=== PATIENT | female | born 2000 | race Caucasian/White ===

== ENCOUNTER 2023-02-04 15:21 | Inpatient (IN) ==
--- NOTE | 2023-02-04 16:02 | Emergency Department Note ---
Impression & Plan Suicidal ideations, Mood disorder ED Provider Note NAME: LUCY PELAYO AGE: 22 SEX: F : 2000 ARRIVES VIA: Walk-In INFORMANT: Patient ED PROVIDER(S): Jignesh Jeffries DO CHIEF COMPLAINT: Suicidal ideations HPI: Patient is a 22-year-old female who presents ER with a past medical history of depression, anxiety and PTSD. She sees a psychiatrist. She notes that over the past 24 hours she has been having suicidal ideations with a plan to cut her wrist with anything sharp. She feels unsafe at home. Denies any headache or change in vision. No chest pain or shortness of breath. No nausea, vomiting, or diarrhea. No auditory or visual hallucinations. PAST MEDICAL HISTORY:See Below PAST SURGICAL HISTORY:See Below FAMILY HISTORY:See Below SOCIAL HISTORY:See Below HOME MEDICATIONS:See Below ALLERGIES:See Below VITALS:See Below PHYSICAL EXAMINATION: GENERAL: Sitting up in bed, alert, well appearing, well nourished, no distress, non-toxic EYE EXAM: normal conjunctiva. OROPHARYNX: mucous membranes are moist LUNGS: Clear to auscultation. Normal chest wall mechanics HEART: no murmurs, S1 normal and S2 normal ABDOMEN: abdomen soft, non-tender, normo-active bowel sounds, no masses, no rebound or guarding. UPPER EXTREMITIES: upper extremities are grossly normal. LOWER EXTREMITIES: No pitting edema. NEURO EXAM: Normal sensorium, cranial nerves II-XII grossly intact, normal speech, no gross weakness of arms, no gross weakness of legs. PSYCH: Denies any homicidal ideations. Admits to suicidal ideations with a plan to cut her wrist MEDICAL DECISION MAKING: Patient is a 22-year-old female who presents ER for suicidal ideations with plan to kill her self. Labs were obtained and showed no significant leukocytosis or anemia. BMP along with LFTs bilirubin and hCG was negative. UA was contaminated. No urinary symptoms. Will not treat at this time. Tox positive for marijuana. COVID-negative. Alcohol negative. Patient has clear suicidal ideations with a plan. Agreeable to coming on 201. Discussed with our psychiatric school child care attendant who evaluate the patient independently. After conversation with them they did make a referral to [facility] and patient was accepted. Patient will go to [facility] on a 201. ED OBSERVATION: The patient was placed in observation status at3:30PM. Medical stability and psychiatric clearance. During the time in observation, the patient was frequently reassessed and received blood work and close monitoring. On Final reassessment the patient patient was resting comfortably in the ER and she is medically stable and the patient will be transferred at this time. A total observation time of 5 hours and accepted to [facility] at 8:30 PM Triage Nursing notes reviewed. Limited review of prior medical records performed Vital Signs: reviewed and remarkable for no significant abnormalities Differential diagnosis: Mood disorder, infection, hypoglycemia, electrolyte abnormalities, cardiac sources, intracerebral event, toxicologic, trauma, neurologic, as well as other pathologies. ER treatment provided: See below Diagnostics interpreted by me include EKG and cardiac monitoring as listed below: -ECG: none -Laboratory studies:Interpreted by me as stated above in MDM and shown below. Imaging studies: Xrays: As interpreted by me:none CTs show: none Consultation(s): As described in MDM Procedures:none Critical Care: None Past Med/Surg History Medical History Anxiety Surgical History No pertinent past surgical history Social History Smoking Status: Current some day smoker Tobacco Type: Cigarettes Preferred Language: Swedish Feels Safe at Home: Yes Gender Identity: Female Allergies Allergies Allergy/AdvReac Type Severity Reaction Status Date / Time amoxicillin Allergy Mild Rash Verified 10/31/21 02:35 Home Meds Home Medications Medication Instructions Recorded Confirmed fluvoxamine 100 mg 100 mg PO DAILY 10/31/21 02/04/23 capsule,extended release 24 hr fluvoxamine 150 mg 150 mg PO DAILY 10/31/21 02/04/23 capsule,extended release 24 hr Medical Mj 02/04/23 cariprazine 1.5 mg capsule mg 02/04/23 (Vraylar) vortioxetine 10 mg tablet mg 02/04/23 (Trintellix) Results & Data (ED) Vital Signs Vital Signs - 24 hr 02/04/23 15:47 Temperature 36.6 C Temperature Source Temporal Artery Scan Pulse Rate 86 Respiratory Rate 18 Blood Pressure 118/81 Blood Pressure Mean 93 Pulse Oximetry 100 Sepsis Recent Fever Within 48 Hours No Sepsis New/Unexplained Change in Mental Status N/A Sepsis Action Taken by Nursing No Action Required Laboratory Data 02/04/23 16:55 02/04/23 16:55 Lab Results 02/04/23 02/04/23 02/04/23 Range/Units 16:07 16:23 16:23 WBC (4.8-10.8) K/ul RBC (4.20-5.40) M/uL Hgb (12.0-16.0) g/dl Hct (37.0-47.0) % MCV (80.0-100.0) fL MCH (25.0-34.0) pg MCHC (32.0-36.0) g/dL RDW Std Deviation (36.4-46.3) fL RDW [place] (11.5-14.5) % Plt Count (130-400) K/uL MPV (9.4-12.4) fL Immature Gran % (Auto) % Neut % (Auto) % Lymph % (Auto) % [place] % (Auto) % Eos % (Auto) % Baso % (Auto) % Neut # (Auto) (1.40-6.50) K/uL Lymph # (Auto) (1.2-3.4) K/uL [place] # (Auto) (0.11-0.59) K/uL Eos # (Auto) (0-0.50) K/uL Baso # (Auto) (0-0.2) K/uL Immature Gran # (Auto) (0.01-0.20) K/uL Sodium (136-145) mmol/L Potassium (3.5-5.1) mmol/L Chloride (98-107) mmol/L Carbon Dioxide (21-32) mmol/L Anion Gap (3-11) BUN (6-23) mg/dl Creatinine (0.6-1.2) mg/dl Est Cr Clr Drug Dosing ml/min Est GFR ( Amer) ml/min Est GFR (Non-Af Amer) ml/min BUN/Creatinine Ratio (10-20) Glucose (70-99(Fasting)) mg/dl Calcium (8.6-10.3) mg/dl Total Bilirubin (0.2-1.0) mg/dl AST (13-39) U/L ALT (7-52) U/L Alkaline Phosphatase (34-104) U/L Total Protein (6.0-8.3) gm/dl Albumin (3.4-5.0) gm/dl Globulin (2.5-4.0) gm/dl Albumin/Globulin Ratio (0.9-2) TSH (0.300-4.500) uIu/ml HCG, Qual (Negative) Urine Color Yellow Urine Appearance Cloudy A (Clear) Urine pH 7.5 (4.5-7.5) Ur Specific [place] 1.022 (1.000-1.030) Urine Protein Negative (Negative) Urine Glucose (UA) Negative (Negative) Urine Ketones 1+ H (Negative) Urine Blood Negative (Negative) Urine Nitrite Negative (Negative) Urine Bilirubin Negative (Negative) Urine Urobilinogen Negative (Negative) Ur Leukocyte Esterase Trace H (Negative) Urine WBC (Auto) 10-30 H (0-5) /hpf Urine RBC (Auto) 0-4 (0-4) /hpf U Hyaline Cast (Auto) 5-10 H (0-5) /lpf U Epithel Cells (Auto) >30 H (0-5) /lpf Urine Bacteria (Auto) 2+ H (Negative) Salicylates (3.0-30) mg/dl Urine Opiates Screen Neg (Neg) Ur Methadone, Qual Neg (Neg) Acetaminophen (10-30) ug/ml Urine Barbiturates Neg (Neg) Ur Phencyclidine (PCP) Neg (Neg) U Amphetamin/Meth Scrn Neg (Neg) MDMA (Ecstasy) Screen Neg (Neg) U Benzodiazepines Scrn Neg (Neg) Ur Cocaine Metabolite Neg (Neg) U Marijuana (THC) Screen Pos H (Neg) Ethyl Alcohol mg/dL (<10.0) mg/dl SARS-CoV-2, RNA, NAAT NEGATIVE (NEGATIVE) 02/04/23 02/04/23 02/04/23 Range/Units 16:55 16:55 16:55 WBC 8.38 (4.8-10.8) K/ul RBC 4.26 (4.20-5.40) M/uL Hgb 14.4 (12.0-16.0) g/dl Hct 39.9 (37.0-47.0) % MCV 93.7 (80.0-100.0) fL MCH 33.8 (25.0-34.0) pg MCHC 36.1 H (32.0-36.0) g/dL RDW Std Deviation 41.1 (36.4-46.3) fL RDW [place] 11.9 (11.5-14.5) % Plt Count 234 (130-400) K/uL MPV 8.4 L (9.4-12.4) fL Immature Gran % (Auto) 0.2 % Neut % (Auto) 79.3 % Lymph % (Auto) 14.4 % [place] % (Auto) 5.4 % Eos % (Auto) 0.5 % Baso % (Auto) 0.2 % Neut # (Auto) 6.64 H (1.40-6.50) K/uL Lymph # (Auto) 1.21 (1.2-3.4) K/uL [place] # (Auto) 0.45 (0.11-0.59) K/uL Eos # (Auto) 0.04 (0-0.50) K/uL Baso # (Auto) 0.02 (0-0.2) K/uL Immature Gran # (Auto) 0.02 (0.01-0.20) K/uL Sodium 138 (136-145) mmol/L Potassium 3.7 (3.5-5.1) mmol/L Chloride 106 (98-107) mmol/L Carbon Dioxide 27 (21-32) mmol/L Anion Gap 5 (3-11) BUN 14 (6-23) mg/dl Creatinine 0.51 L (0.6-1.2) mg/dl Est Cr Clr Drug Dosing 121.1 ml/min Est GFR ( Amer) > 150.0 ml/min Est GFR (Non-Af Amer) 134.6 ml/min BUN/Creatinine Ratio 27.5 H (10-20) Glucose 104 H (70-99(Fasting)) mg/dl Calcium 9.3 (8.6-10.3) mg/dl Total Bilirubin 0.5 (0.2-1.0) mg/dl AST 13 (13-39) U/L ALT 8 (7-52) U/L Alkaline Phosphatase 43 (34-104) U/L Total Protein 7.3 (6.0-8.3) gm/dl Albumin 4.5 (3.4-5.0) gm/dl Globulin 2.8 (2.5-4.0) gm/dl Albumin/Globulin Ratio 1.6 (0.9-2) TSH 0.731 (0.300-4.500) uIu/ml HCG, Qual (Negative) Urine Color Urine Appearance (Clear) Urine pH (4.5-7.5) Ur Specific [place] (1.000-1.030) Urine Protein (Negative) Urine Glucose (UA) (Negative) Urine Ketones (Negative) Urine Blood (Negative) Urine Nitrite (Negative) Urine Bilirubin (Negative) Urine Urobilinogen (Negative) Ur Leukocyte Esterase (Negative) Urine WBC (Auto) (0-5) /hpf Urine RBC (Auto) (0-4) /hpf U Hyaline Cast (Auto) (0-5) /lpf U Epithel Cells (Auto) (0-5) /lpf Urine Bacteria (Auto) (Negative) Salicylates (3.0-30) mg/dl Urine Opiates Screen (Neg) Ur Methadone, Qual (Neg) Acetaminophen (10-30) ug/ml Urine Barbiturates (Neg) Ur Phencyclidine (PCP) (Neg) U Amphetamin/Meth Scrn (Neg) MDMA (Ecstasy) Screen (Neg) U Benzodiazepines Scrn (Neg) Ur Cocaine Metabolite (Neg) U Marijuana (THC) Screen (Neg) Ethyl Alcohol mg/dL (<10.0) mg/dl SARS-CoV-2, RNA, NAAT (NEGATIVE) 02/04/23 02/04/23 02/04/23 Range/Units 16:55 16:55 16:55 WBC (4.8-10.8) K/ul RBC (4.20-5.40) M/uL Hgb (12.0-16.0) g/dl Hct (37.0-47.0) % MCV (80.0-100.0) fL MCH (25.0-34.0) pg MCHC (32.0-36.0) g/dL RDW Std Deviation (36.4-46.3) fL RDW [place] (11.5-14.5) % Plt Count (130-400) K/uL MPV (9.4-12.4) fL Immature Gran % (Auto) % Neut % (Auto) % Lymph % (Auto) % [place] % (Auto) % Eos % (Auto) % Baso % (Auto) % Neut # (Auto) (1.40-6.50) K/uL Lymph # (Auto) (1.2-3.4) K/uL [place] # (Auto) (0.11-0.59) K/uL Eos # (Auto) (0-0.50) K/uL Baso # (Auto) (0-0.2) K/uL Immature Gran # (Auto) (0.01-0.20) K/uL Sodium (136-145) mmol/L Potassium (3.5-5.1) mmol/L Chloride (98-107) mmol/L Carbon Dioxide (21-32) mmol/L Anion Gap (3-11) BUN (6-23) mg/dl Creatinine (0.6-1.2) mg/dl Est Cr Clr Drug Dosing ml/min Est GFR ( Amer) ml/min Est GFR (Non-Af Amer) ml/min BUN/Creatinine Ratio (10-20) Glucose (70-99(Fasting)) mg/dl Calcium (8.6-10.3) mg/dl Total Bilirubin (0.2-1.0) mg/dl AST (13-39) U/L ALT (7-52) U/L Alkaline Phosphatase (34-104) U/L Total Protein (6.0-8.3) gm/dl Albumin (3.4-5.0) gm/dl Globulin (2.5-4.0) gm/dl Albumin/Globulin Ratio (0.9-2) TSH (0.300-4.500) uIu/ml HCG, Qual Negative (Negative) Urine Color Urine Appearance (Clear) Urine pH (4.5-7.5) Ur Specific [place] (1.000-1.030) Urine Protein (Negative) Urine Glucose (UA) (Negative) Urine Ketones (Negative) Urine Blood (Negative) Urine Nitrite (Negative) Urine Bilirubin (Negative) Urine Urobilinogen (Negative) Ur Leukocyte Esterase (Negative) Urine WBC (Auto) (0-5) /hpf Urine RBC (Auto) (0-4) /hpf U Hyaline Cast (Auto) (0-5) /lpf U Epithel Cells (Auto) (0-5) /lpf Urine Bacteria (Auto) (Negative) Salicylates < 3.0 L (3.0-30) mg/dl Urine Opiates Screen (Neg) Ur Methadone, Qual (Neg) Acetaminophen < 3 L (10-30) ug/ml Urine Barbiturates (Neg) Ur Phencyclidine (PCP) (Neg) U Amphetamin/Meth Scrn (Neg) MDMA (Ecstasy) Screen (Neg) U Benzodiazepines Scrn (Neg) Ur Cocaine Metabolite (Neg) U Marijuana (THC) Screen (Neg) Ethyl Alcohol mg/dL < 10.0 (<10.0) mg/dl SARS-CoV-2, RNA, NAAT (NEGATIVE) Discharge Plan Visit Data Chief Complaint: Mental Health Evaluation Stated Complaint: MHE, REF BY DOC ED Provider: Jignesh Jeffries Discharge Problem: Suicidal ideations, Mood disorder Forms Stand Alone Forms: My [facility], Suicide Prevention Resources Prescriptions Prescriptions: No Action fluvoxamine 100 mg capsule,extended release 24hr 100 mg PO DAILY Rx Instructions: TOTAL DOSE 250 MG--TAKES WITH 150 MG CAP. fluvoxamine 150 mg capsule,extended release 24hr 150 mg PO DAILY Rx Instructions: TOTAL DOSE 250 MG--TAKES WITH 100 MG CAP. Vraylar 1.5 mg capsule Trintellix 10 mg tablet Medical Mj Referrals Referrals: Viktor Mendoza MD [Primary Care Provider] -
[2023-02-04 16:46] LABS: Appearance Urine Cloudy (Clear); Bacteria Urine Automated 2+ (Negative); Bilirubin Urine Negative (Negative); Blood Urine Negative (Negative); Color Urine Yellow; Epithelial Cell Urine Auto >30 /lpf (0-5); Glucose Urine UA Negative (Negative); Ketones Urine 1+ (Negative); Leukocyte Esterase Urine Trace (Negative); Nitrite Urine Negative (Negative); Protein Urine Negative (Negative); Specific Gravity Urine 1.022 (1.000-1.030); Urobilinogen Urine Negative (Negative); pH Urine 7.5 (4.5-7.5)
[2023-02-04 17:04] LABS: RBC Urine Automated 0-4 /hpf (0-4)
[2023-02-04 17:23] LABS: Basophils # (auto) 0.02 K/uL (0-0.2); Basophils % (auto) 0.2 %; Eosinophils # (auto) 0.04 K/uL (0-0.50); Eosinophils % (auto) 0.5 %; Hematocrit (blood only) 39.9 % (37.0-47.0); Hemoglobin 14.4 g/dl (12.0-16.0); Immature Granulocytes # (auto) 0.02 K/uL (0.01-0.20); Immature Granulocytes % (auto) 0.2 %; Lymphocytes # (auto) 1.21 K/uL (1.2-3.4); Lymphocytes % (auto) 14.4 %; Mean Corpuscular Hemoglobin 33.8 pg (25.0-34.0); Mean Corpuscular Hgb Conc 36.1 g/dL (32.0-36.0); Mean Corpuscular Volume 93.7 fL (80.0-100.0); Mean Platelet Volume 8.4 fL (9.4-12.4); Monocytes # (auto) 0.45 K/uL (0.11-0.59); Monocytes % (auto) 5.4 %; Neutrophils # (auto) 6.64 K/uL (1.40-6.50); Neutrophils % (auto) 79.3 %; Platelet Count 234 K/uL (130-400); RDW Coefficient of Variation 11.9 % (11.5-14.5); RDW Standard Deviation 41.1 fL (36.4-46.3); Red Blood Count 4.26 M/uL (4.20-5.40); White Blood Count 8.38 K/ul (4.8-10.8)
[2023-02-04 17:24] LABS: Amphetamines+Metham, Urine Neg (Neg); Barbiturates, Urine Neg (Neg); Benzodiazepine, Urine Neg (Neg); Cocaine, Urine Neg (Neg); MDMA (Ecstacy), Urine Neg (Neg); Methadone, Urine Neg (Neg); Opiate, Urine Neg (Neg); Phencyclidine, Urine Neg (Neg)
[2023-02-04 17:30] LABS: Acetaminophen < 3 ug/ml (10-30); Salicylate < 3.0 mg/dl (3.0-30)
[2023-02-04 17:34] LABS: Alanine Aminotransferase 8 U/L (7-52); Albumin Globulin Ratio 1.6 (0.9-2); Albumin Level 4.5 gm/dl (3.4-5.0); Alkaline Phosphatase 43 U/L (34-104); Anion Gap 5 (3-11); Aspartate Aminotransferase 13 U/L (13-39); BUN Creatinine Ratio 27.5 (10-20); Bilirubin,Total 0.5 mg/dl (0.2-1.0); Blood Urea Nitrogen 14 mg/dl (6-23); Calcium 9.3 mg/dl (8.6-10.3); Carbon Dioxide 27 mmol/L (21-32); Chloride 106 mmol/L (98-107); Creatinine Clr Calc Pharmacy 121.1 ml/min; Est GFR (African American) > 150.0 ml/min; Est GFR (Non-African American) 134.6 ml/min; Globulin 2.8 gm/dl (2.5-4.0); Glucose 104 mg/dl (70-99(Fasting)); Potassium 3.7 mmol/L (3.5-5.1); Sodium 138 mmol/L (136-145); Total Protein 7.3 gm/dl (6.0-8.3)
[2023-02-04 17:38] LABS: Pregnancy Test, Serum Negative (Negative)
[2023-02-04] MEDS ORDERED: hydrOXYzine HCl 25 MG TAB PO PRN ×2 (20:16)
[2023-02-04] MEDS ORDERED: BISMUTH SUBSALICYLATE LIQD 236 ML PO PRN (20:16)
[2023-02-04] MEDS ORDERED: SODIUM CHLORIDE 0.65% NA SOLN 45 ML (OCEAN) PRN (20:16)
[2023-02-04] MEDS ORDERED: ALUMINUM/MAGNESIUM SUSP 30 ML UDC PO PRN (20:16)
[2023-02-04] MEDS ORDERED: ACETAMINOPHEN 325 MG TAB PO PRN (20:16)
[2023-02-04] MEDS ORDERED: MAGNESIUM HYDROXIDE SUSP 30 ML UDC PO PRN (20:16)
--- NOTE | 2023-02-05 13:36 | History & Physical ---
Date of Service February 05, 2023 Impression / Recommendations Derik Valenzuela is a 22 year old with a history of PTSD, depression, anxiety who was admitted for worsening depression and SI with plan in context of recent medication nonadherence due to running out of their prescription, financial strain, dissatisfaction with their job and big decisions about potentially moving in the next few months. Diagnostically consistent with major depressive episode with anxious distress, TROY with panic attacks, and PTSD. They are deemed in need of psychiatric hospitalization for diagnostic clarification, safety and stabilization, medication management and development of further coping skills. Discussed medication treatment options in detail. Discussed risks, benefits and alternatives. Patient would like to start and consented to increasing Luvox for depression/anxiety/PTSD and starting clonidine for off-FDA label use for anxiety and night terrors. Reviewed side effects including but not limited to: GI, MALAVE, sexual side effects, and counseled on black box warning of potential for reji rgence of or increased SI and need to let staff know should this occur or should they feel unsafe. Also discussed importance of seeking emergency care following discharge if this side effect occurs in the future. Reviewed risk of sedation, low BP, syncope, dizziness with clonidine. MNPR due to non-binary (1) Suicidal ideations: (2) Recurrent severe major depressive disorder with anxiety: (3) Post traumatic stress disorder (PTSD): (4) Generalized anxiety disorder with panic attacks: Plan 02/05/2023: The patient was admitted to the [facility] ([facility] mental health unit) on q15 min checks (behavioral with suicide precautions) for safety. The patient will participate in group, recreational, and milieu therapies and will be offered additional individual and family sessions as clinically appropriate. -Increase Luvox to 300mg HS -Start clonidine 0.1mg HS -Discontinue Trintellix and Vraylar Inventory Assets Strengths: supportive relationships, willing to get treatment Needs: safety and stabilization, medication adjustment, additional coping skills, increased outpatient services Suicide Risk Level Suicide Risk Level: High-Moderate (q15 min suicide checks) (severe depression with SI with plan prior to admission but feels safe in the hospital, able to safety contract and agrees to let nursing/staff know should they develop plan, intent or feel unable to remain safe. ) Risk Factors Assessment Male: No : Yes Do You Have Access To A Gun?: No Health Problems: No Mental Health Diagnoses: Yes Substance Use Disorders: No Previous Attempt: No Family History of Suicide: Yes (attempts) Previous Psychiatric Hospitalization: No Protective Factors Assessment Employed: Yes ([employer]) Stable Relationships: Yes Good Rapport with Provider: Yes Psychiatric History Identifying Data LUCY PELAYO (RIVER) is a 22-year-old non-binary individual who currently lives in [place] with their girlfriend, has a history of depression, anxiety, PTSD, and was admitted on 02/04/23 20:16 on a 201 voluntary commitment for worsening depression and SI with plan. Chief Complaint "I haven't felt this mentally unstable before and that I needed more support". History of Present Illness Nicolas presented to the hospital for worsening depression and SI with plan of cutting in and at the recommendation of their outpatient psychiatric provider Amanda Lopez. Nicolas describes worsening depression in the context of multiple psychosocial stressors including planning a possible move (to [place] or out of [facility]) in the next 4 months, financial strain, hating their job, body being in pain from work. Nicolas describes a lot of heavy lifting and physical labor at work that's caused a lot of physical soreness and fatigue by the end of each day especially right foot pain from an old injury. Has been dealing with more night terrors, periods of feeling "unsafe and afraid" from triggers to PTSD. Further recent history reviewed and confirmed as documented by ED psych CM on 02/04/2023: "The patient continues to express suicidal ideation with plan to slit her wrists. She reports her stressors as previously mentioned make her feel directionless. She reports she is compliant with her medications and denies any legal issues. The patient reports depressive symptoms of anergia, anhedonia and wanting the day to be over. She denies issues with her appetite and reports 8-9 hours of sleep night, but she has recently been waking up during the night due to nightmares, which she reports is new since she would normally sleep through the nightmares. The patient denies any manic symptoms and reports her anxiety has been stable (currently a 2) with chest pain (like Im having a heart attack) when she is feeling anxious. The patient denies any hallucinations, paranoid thinking, self-injurious behaviors (history or current), aggressive / violent behavior and homicidal ideations. The patient admits to drinking 1-2 drinks 1-2 times per week and denies drug use (has medical marijuana card)." They are currently prescribed psychiatric medications of Trintellix 10mg daily (has been on this for >1 year, not sure if it helps), Fluvoxamine (finds this very helpful, has been for a few years and helps with PTSD) and Vryalar (1.5mg every other day for anxiety). Recently missed about four doses of Fluvoxamine due to running out of their prescription. Psychiatric ROS notable for no current nor history of symptoms of mandi, psychosis, OCD. History of restrictive eating disorder but not in the last few weeks. No history of self-harm. Past Psychiatric History Previous Psych History: hx depression, anxiety, PTSD, tendencies of borderline personality disorder Outpatient Services: has outpatient therapist Jo Ann Krause at [facility], Amanda Lopez at [facility] for psychiatric medication Previous Psych Admissions: n/a Do You Have Access To A Gun?: No History of Previous Suicide Attempt: No (rehearsal behaviors) Describe Attempts in the Past: 2 times in past-age 16 and age 18 stood on top of large builiding Past Medication Trials: SSRIs: zoloft SNRI: Effexor (felt very on edge and "twitchy") Wellbutrin (can't recall if issues) Prazosin (difficulty breathing) Buspar ("did not like it", didn't seem to have any effect, fairly low dose) Antipsychotics: abilify (thinks this was for anxiety), Seroquel (slept all day) Mood stabilizers: Lamictal (memory loss) Past Head Trauma/Neuro History History of Concussion/Seizure: Yes hx concussions, ~3x Allergies Allergy/AdvReac Type Severity Reaction Status Date / Time amoxicillin Allergy Mild Rash Verified 02/05/23 13:15 Home Medications Medication Instructions Recorded Confirmed Type fluvoxamine 100 mg 100 mg PO DAILY 10/31/21 02/04/23 History capsule,extended release 24 hr fluvoxamine 150 mg 150 mg PO DAILY 10/31/21 02/04/23 History capsule,extended release 24 hr Medical Mj 02/04/23 History cariprazine 1.5 mg capsule mg 02/04/23 History (Vraylar) vortioxetine 10 mg tablet mg 02/04/23 History (Trintellix) Family History Family History of: Depression, Anxiety and Suicide Attempts (siblings have attempted) Family Mental Health History Comment: Mom has anxiety Dad has Depression and PTSD Alcohol History Hx of Alcohol Use Over the Past 12 Months: Yes AUDIT Total Score: 2 drinks about 2 beers once or twice per week Smoking Use Have You Smoked or Used Tobacco Products in the Last 30 Days: Yes tobacco type: cigarettes and cigars Smoking Status: Current some day smoker (once or twice per month) Smoking packs per day: 0.25 Substance History Hx of Prescription Med Misuse Over the Past 12 Months: No Hx of Over the Counter Med Misuse Over the Past 12 Months: No Hx of Inhalent Misuse Over the Past 12 Months: No Hx of Organic Substance Use Over the Past 12 Months: No Hx of Illegal Substances/Street Drug Use Over Past 12 Months: No Problems as a Result of Past Substance Use: None Identified uses cannabis about 3-4 times per week, prevents them from having nightmares Personal History Living Arrangements: Apartment Highest Grade Completed: College (BS in [employer]) 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 Other Number Of Children: 0 Beliefs That Will Affect Care: None Current Legal Problems: No Hx Legal Problems: No Hx Traumatic Life Events: Yes Additional Comments: they/them Patient History Medical History Anxiety Surgical History No pertinent past surgical history Social History Smoking Status: Current some day smoker (once or twice per month) Tobacco Type: Cigarettes Preferred Language: Luxembourgish Communication Ability: Effective Sports Announcer Required: No Beliefs That Will Affect Care: None Feels Safe at Home: No Gender Identity: Female Assistive Devices: Glasses Review of Systems Review of Systems: All systems reviewed & are unremarkable except as noted in HPI & below Physical Exam Psychiatric: Orientation: alert and oriented x 3 Apperance: appropriately dressed and appropriately groomed Eye Contact: good eye contact Motor Behavior: no abnormal motor movements Speech: normal rate/rhythm/volume of speech Affect: + depressed affect and + anxious affect Mood: + depressed mood and + anxious mood Thought Process: goal directed thought process Thought Content: reality based without delusions Suicidal Thoughts: denies suicidal thoughts (feels safe here in the hospital), denies suicidal plan (none for hospital, prior via slitting wrists) and denies suicidal intent Homicidal Thoughts: denies homicidal thoughts Hallucinations: no auditory hallucinations and no visual hallucinations Cognition: recent memory grossly intact, remote memory grossly intact, attention grossly intact and language grossly intact Estimated Intelligence: consistent with education level Insight: + fair insight Judgment: + fair judgement Vital Signs (Past 24 Hours): Last Vital Signs Temp 36.6 C 02/05/23 06:45 Pulse 80 02/05/23 06:46 Resp 16 02/05/23 06:45 BP 110/76 02/05/23 06:46 Pulse Ox 100 02/04/23 21:21 O2 Del Method Room Air 02/04/23 21:21 Exam Statement: A physical exam was performed in the ED by Dr. Jeffries for the purposes of medical clearance. I accept that physical as correct and adequate for the purposes of the inpatient physical exam. Results & Data ([facility]) Laboratory Results Laboratory Results - last 24 hr 02/04/23 02/04/23 02/04/23 16:07 16:23 16:23 WBC RBC Hgb Hct MCV MCH MCHC RDW Std Deviation RDW [place] Plt Count MPV Immature Gran % (Auto) Neut % (Auto) Lymph % (Auto) [place] % (Auto) Eos % (Auto) Baso % (Auto) Neut # (Auto) Lymph # (Auto) [place] # (Auto) Eos # (Auto) Baso # (Auto) Immature Gran # (Auto) Sodium Potassium Chloride Carbon Dioxide Anion Gap BUN Creatinine Est Cr Clr Drug Dosing Est GFR ( Amer) Est GFR (Non-Af Amer) BUN/Creatinine Ratio Glucose Calcium Total Bilirubin AST ALT Alkaline Phosphatase Total Protein Albumin Globulin Albumin/Globulin Ratio TSH HCG, Qual Urine Color Yellow Urine Appearance Cloudy A Urine pH 7.5 Ur Specific Zoe 1.022 Urine Protein Negative Urine Glucose (UA) Negative Urine Ketones 1+ H Urine Blood Negative Urine Nitrite Negative Urine Bilirubin Negative Urine Urobilinogen Negative Ur Leukocyte Esterase Trace H Urine WBC (Auto) 10-30 H Urine RBC (Auto) 0-4 U Hyaline Cast (Auto) 5-10 H U Epithel Cells (Auto) >30 H Urine Bacteria (Auto) 2+ H Salicylates Urine Opiates Screen Neg Ur Methadone, Qual Neg Acetaminophen Urine Barbiturates Neg Ur Phencyclidine (PCP) Neg U Amphetamin/Meth Scrn Neg MDMA (Ecstasy) Screen Neg U Benzodiazepines Scrn Neg Ur Cocaine Metabolite Neg U Marijuana (THC) Screen Pos H U Marijuana THC Carboxy Drug Screen Comment Ethyl Alcohol mg/dL SARS-CoV-2, RNA, NAAT NEGATIVE 02/04/23 02/04/23 02/04/23 16:23 16:55 16:55 WBC 8.38 RBC 4.26 Hgb 14.4 Hct 39.9 MCV 93.7 MCH 33.8 MCHC 36.1 H RDW Std Deviation 41.1 RDW [place] 11.9 Plt Count 234 MPV 8.4 L Immature Gran % (Auto) 0.2 Neut % (Auto) 79.3 Lymph % (Auto) 14.4 Dooly % (Auto) 5.4 Eos % (Auto) 0.5 Baso % (Auto) 0.2 Neut # (Auto) 6.64 H Lymph # (Auto) 1.21 Dooly # (Auto) 0.45 Eos # (Auto) 0.04 Baso # (Auto) 0.02 Immature Gran # (Auto) 0.02 Sodium 138 Potassium 3.7 Chloride 106 Carbon Dioxide 27 Anion Gap 5 BUN 14 Creatinine 0.51 L Est Cr Clr Drug Dosing 121.1 Est GFR ( Amer) > 150.0 Est GFR (Non-Af Amer) 134.6 BUN/Creatinine Ratio 27.5 H Glucose 104 H Calcium 9.3 Total Bilirubin 0.5 AST 13 ALT 8 Alkaline Phosphatase 43 Total Protein 7.3 Albumin 4.5 Globulin 2.8 Albumin/Globulin Ratio 1.6 TSH HCG, Qual Urine Color Urine Appearance Urine pH Ur Specific Zoe Urine Protein Urine Glucose (UA) Urine Ketones Urine Blood Urine Nitrite Urine Bilirubin Urine Urobilinogen Ur Leukocyte Esterase Urine WBC (Auto) Urine RBC (Auto) U Hyaline Cast (Auto) U Epithel Cells (Auto) Urine Bacteria (Auto) Salicylates Urine Opiates Screen Ur Methadone, Qual Acetaminophen Urine Barbiturates Ur Phencyclidine (PCP) U Amphetamin/Meth Scrn MDMA (Ecstasy) Screen U Benzodiazepines Scrn Ur Cocaine Metabolite U Marijuana (THC) Screen U Marijuana THC Carboxy Pending Drug Screen Comment Pending Ethyl Alcohol mg/dL SARS-CoV-2, RNA, NAAT 02/04/23 02/04/23 02/04/23 16:55 16:55 16:55 WBC RBC Hgb Hct MCV MCH MCHC RDW Std Deviation RDW [place] Plt Count MPV Immature Gran % (Auto) Neut % (Auto) Lymph % (Auto) [place] % (Auto) Eos % (Auto) Baso % (Auto) Neut # (Auto) Lymph # (Auto) [place]y # (Auto) Eos # (Auto) Baso # (Auto) Immature Gran # (Auto) Sodium Potassium Chloride Carbon Dioxide Anion Gap BUN Creatinine Est Cr Clr Drug Dosing Est GFR ( Amer) Est GFR (Non-Af Amer) BUN/Creatinine Ratio Glucose Calcium Total Bilirubin AST ALT Alkaline Phosphatase Total Protein Albumin Globulin Albumin/Globulin Ratio TSH 0.731 HCG, Qual Urine Color Urine Appearance Urine pH Ur Specific Zoe Urine Protein Urine Glucose (UA) Urine Ketones Urine Blood Urine Nitrite Urine Bilirubin Urine Urobilinogen Ur Leukocyte Esterase Urine WBC (Auto) Urine RBC (Auto) U Hyaline Cast (Auto) U Epithel Cells (Auto) Urine Bacteria (Auto) Salicylates < 3.0 L Urine Opiates Screen Ur Methadone, Qual Acetaminophen < 3 L Urine Barbiturates Ur Phencyclidine (PCP) U Amphetamin/Meth Scrn MDMA (Ecstasy) Screen U Benzodiazepines Scrn Ur Cocaine Metabolite U Marijuana (THC) Screen U Marijuana THC Carboxy Drug Screen Comment Ethyl Alcohol mg/dL < 10.0 SARS-CoV-2, RNA, NAAT 02/04/23 16:55 WBC RBC Hgb Hct MCV MCH MCHC RDW Std Deviation RDW [place] Plt Count MPV Immature Gran % (Auto) Neut % (Auto) Lymph % (Auto) [place] % (Auto) Eos % (Auto) Baso % (Auto) Neut # (Auto) Lymph # (Auto) [place]y # (Auto) Eos # (Auto) Baso # (Auto) Immature Gran # (Auto) Sodium Potassium Chloride Carbon Dioxide Anion Gap BUN Creatinine Est Cr Clr Drug Dosing Est GFR ( Amer) Est GFR (Non-Af Amer) BUN/Creatinine Ratio Glucose Calcium Total Bilirubin AST ALT Alkaline Phosphatase Total Protein Albumin Globulin Albumin/Globulin Ratio TSH HCG, Qual Negative Urine Color Urine Appearance Urine pH Ur Specific Zoe Urine Protein Urine Glucose (UA) Urine Ketones Urine Blood Urine Nitrite Urine Bilirubin Urine Urobilinogen Ur Leukocyte Esterase Urine WBC (Auto) Urine RBC (Auto) U Hyaline Cast (Auto) U Epithel Cells (Auto) Urine Bacteria (Auto) Salicylates Urine Opiates Screen Ur Methadone, Qual Acetaminophen Urine Barbiturates Ur Phencyclidine (PCP) U Amphetamin/Meth Scrn MDMA (Ecstasy) Screen U Benzodiazepines Scrn Ur Cocaine Metabolite U Marijuana (THC) Screen U Marijuana THC Carboxy Drug Screen Comment Ethyl Alcohol mg/dL SARS-CoV-2, RNA, NAAT Current Inpatient Medications Current Inpatient Medications: Current Inpatient Medications Acetaminophen (Acetaminophen 325 Mg Tab) 650 mg PO Q4H PRN PRN Reason: Headache or Minor Fever Stop: 03/06/23 20:15 Al Hydrox/Mg Hydrox/Simethicone (Aluminum/Magnesium Susp 30 Ml Udc) 30 ml PO Q4H PRN PRN Reason: GI Upset Stop: 03/06/23 20:15 Bismuth Subsalicylate (Bismuth Subsalicylate Liqd 236 Ml) 15 ml PO PRN PRN PRN Reason: Loose Stool Stop: 03/06/23 20:15 Hydroxyzine HCl (Hydroxyzine Hcl 25 Mg Tab) 50 mg PO HSZ PRN PRN Reason: Insomnia Stop: 03/06/23 20:15 Last Admin: 02/04/23 22:40 Dose: 50 mg Hydroxyzine HCl (Hydroxyzine Hcl 25 Mg Tab) 25 mg PO Q4H PRN PRN Reason: Anxiety Stop: 03/06/23 20:15 Magnesium Hydroxide (Magnesium Hydroxide Susp 30 Ml Udc) 30 ml PO DAILY PRN PRN Reason: Constipation Stop: 03/06/23 20:15 Sodium Chloride (Sodium Chloride 0.65% Na Soln 45 Ml ([place])) 1 - 2 sprays NA PRN PRN PRN Reason: Nasal Dryness/Congestion Stop: 03/06/23 20:15
[2023-02-05] MEDS: fluvoxaMINE MALEATE 50 MG TAB PO SCH (22:22)
[2023-02-05] MEDS: cloNIDine HCL 0.1 MG TAB PO SCH (22:22)
--- NOTE | 2023-02-06 11:45 | Psychiatric Progress Note ---
Date of Service February 06, 2023 Impression / Recommendations Derik Valenzuela is a 22 year old with a history of PTSD, depression, anxiety who was admitted for worsening depression and SI with plan in context of recent medication nonadherence due to running out of their prescription, financial strain, dissatisfaction with their job and big decisions about potentially moving in the next few months. Diagnostically consistent with major depressive episode with anxious distress, TROY with panic attacks, and PTSD. They are deemed in need of psychiatric hospitalization for diagnostic clarification, safety and stabilization, medication management and development of further coping skills. MNPR due to identifying as non-binary 02/06/2023: Ongoing depression and anxiety but tolerating initiation of clonidine with no night terrors last night, will continue to monitor. Tolerating higher dose of Luvox. (1) Suicidal ideations: (2) Recurrent severe major depressive disorder with anxiety: (3) Post traumatic stress disorder (PTSD): (4) Generalized anxiety disorder with panic attacks: Plan 02/06/2023: Continue current medications and tx plan. 02/05/2023: The patient was admitted to the [facility] ([facility] mental health unit) on q15 min checks (behavioral with suicide precautions) for safety. The patient will participate in group, recreational, and milieu therapies and will be offered additional individual and family sessions as clinically appropriate. -Increase Luvox to 300mg HS -Start clonidine 0.1mg HS -Discontinue Trintellix and Vraylar Inventory Assets Strengths: supportive relationships, willing to get treatment Needs: safety and stabilization, medication adjustment, additional coping skills, increased outpatient services Suicide Risk Level Suicide Risk Level: High-Moderate (q15 min suicide checks) (severe depression with SI with plan prior to admission but feels safe in the hospital, able to safety contract and agrees to let nursing/staff know should they develop plan, intent or feel unable to remain safe. ) Risk Factors Assessment Male: No : Yes Do You Have Access To A Gun?: No Health Problems: No Mental Health Diagnoses: Yes Substance Use Disorders: No Previous Attempt: No Family History of Suicide: Yes (attempts) Previous Psychiatric Hospitalization: No Protective Factors Assessment Employed: Yes ([employer]) Stable Relationships: Yes Good Rapport with Provider: Yes Interval History Identifying Information LUCY PELAYO (RIVER) is a 22-year-old non-binary individual who currently lives in [place] with their girlfriend, has a history of depression, anxiety, PTSD, and was admitted on 02/04/23 20:16 on a 201 voluntary commitment for worsening depression and SI with plan. Chief Complaint "A bit tired". Review of Systems Sleep Information Total Hours of Sleep: 6.25 Meal Information Percent Meal Consumed - Breakfast: 100 Percent Meal Consumed - Lunch: 100 Percent Meal Consumed - Dinner: 100 Subjective Subjective Patient was seen & assessed and interval progress reviewed with treatment team nursing and social work. Attending groups. This afternoon feels a bit tired but slept well last night and didn't experience any night terrors. Had slight nausea for 2 seconds after standing up quickly in the morning but this then resolved which they attribute to the clonidine. No other side effects from clonidine and it helped with sleep. No side effects from increased Luvox dose. Denies current SI. Slight MALAVE earlier in the day but this has resolved. Physical Exam Psychiatric Orientation: alert and oriented x 3 Apperance: appropriately dressed and appropriately groomed Eye Contact: good eye contact Motor Behavior: no abnormal motor movements Speech: normal rate/rhythm/volume of speech Affect: + depressed affect and + anxious affect Mood: + depressed mood and + anxious mood Thought Process: goal directed thought process Thought Content: reality based without delusions Suicidal Thoughts: denies suicidal thoughts (feels safe here in the hospital), denies suicidal plan (none for hospital, prior via slitting wrists) and denies suicidal intent Homicidal Thoughts: denies homicidal thoughts Hallucinations: no auditory hallucinations and no visual hallucinations Cognition: recent memory grossly intact, remote memory grossly intact, attention grossly intact and language grossly intact Estimated Intelligence: consistent with education level Insight: + fair insight Judgment: + fair judgement Vital Signs (Past 24 Hours) Last Vital Signs Temp 36.4 C 02/06/23 06:24 Pulse 99 H 02/06/23 06:26 Resp 18 02/06/23 06:24 BP 114/81 02/06/23 06:26 Pulse Ox 100 02/04/23 21:21 O2 Del Method Room Air 02/04/23 21:21 Results & Data ([facility]) Current Inpatient Medications Current Inpatient Medications: Current Inpatient Medications Acetaminophen (Acetaminophen 325 Mg Tab) 650 mg PO Q4H PRN PRN Reason: Headache or Minor Fever Stop: 03/06/23 20:15 Al Hydrox/Mg Hydrox/Simethicone (Aluminum/Magnesium Susp 30 Ml Udc) 30 ml PO Q4H PRN PRN Reason: GI Upset Stop: 03/06/23 20:15 Bismuth Subsalicylate (Bismuth Subsalicylate Liqd 236 Ml) 15 ml PO PRN PRN PRN Reason: Loose Stool Stop: 03/06/23 20:15 Clonidine HCl (Clonidine Hcl 0.1 Mg Tab) 0.1 mg PO HS ALBINA Stop: 03/07/23 21:59 Last Admin: 02/05/23 22:22 Dose: 0.1 mg Fluvoxamine Maleate (Fluvoxamine Maleate 50 Mg Tab) 300 mg PO HS ALBINA Stop: 03/07/23 21:59 Last Admin: 02/05/23 22:22 Dose: 300 mg Hydroxyzine HCl (Hydroxyzine Hcl 25 Mg Tab) 50 mg PO HSZ PRN PRN Reason: Insomnia Stop: 03/06/23 20:15 Last Admin: 02/04/23 22:40 Dose: 50 mg Hydroxyzine HCl (Hydroxyzine Hcl 25 Mg Tab) 25 mg PO Q4H PRN PRN Reason: Anxiety Stop: 03/06/23 20:15 Magnesium Hydroxide (Magnesium Hydroxide Susp 30 Ml Udc) 30 ml PO DAILY PRN PRN Reason: Constipation Stop: 03/06/23 20:15 Sodium Chloride (Sodium Chloride 0.65% Na Soln 45 Ml ([place])) 1 - 2 sprays NA PRN PRN PRN Reason: Nasal Dryness/Congestion Stop: 03/06/23 20:15 Mental Health & Subst Abuse Tx Psychiatrist Name of Psychiatrist: Katya Dela Cruz Psychiatrist's Date Of Appointment With Psychiatric Provider: 02/18/2023 Time of Appointment with Psychiatrist: 11:20 AM Psychiatric Appointment Comment: [address] [place] [address] Therapist Name of Therapist: [facility]- Selina Krause Therapist's Date of Therapist Appointment: 02/19/23 Time of Therapist Appointment: 2:00 PM Therapy Appointment Comment: continue telehealth protocol Post Discharge Appointments Primary Care Physician Name Of Family Doctor/PCP: [facility]- Dr. Mendoza Primary Care Time of Appointment with PCP: please follow up as needed Provider Appointment Comment: [address], [place], [place] Contact Information Discharge Discharge Address: [facility] [place] [address]
[2023-02-06] MEDS: fluvoxaMINE MALEATE 50 MG TAB PO SCH (21:43)
[2023-02-06] MEDS: cloNIDine HCL 0.1 MG TAB PO SCH (21:43)
[2023-02-07 07:53] LABS: Marijuana Quant, GCMS Urine 95 ng/mL (<5)
[2023-02-07] MEDS ORDERED: DESTROY THIS MEDICATION ONE (10:56)
--- NOTE | 2023-02-07 11:02 | Discharge Summary ---
Date of Service February 07, 2023 History of Present Illness Nicolas presented to the hospital for worsening depression and SI with plan of cutting in and at the recommendation of their outpatient psychiatric provider Amanda Lopez. Nicolas describes worsening depression in the context of multiple psychosocial stressors including planning a possible move (to [place] or out of [facility]) in the next 4 months, financial strain, hating their job, body being in pain from work. Nicolas describes a lot of heavy lifting and physical labor at work that's caused a lot of physical soreness and fatigue by the end of each day especially right foot pain from an old injury. Has been dealing with more night terrors, periods of feeling "unsafe and afraid" from triggers to PTSD. Further recent history reviewed and confirmed as documented by ED psych CM on 02/04/2023: "The patient continues to express suicidal ideation with plan to slit her wrists. She reports her stressors as previously mentioned make her feel directionless. She reports she is compliant with her medications and denies any legal issues. The patient reports depressive symptoms of anergia, anhedonia and wanting the day to be over. She denies issues with her appetite and reports 8-9 hours of sleep night, but she has recently been waking up during the night due to nightmares, which she reports is new since she would normally sleep through the nightmares. The patient denies any manic symptoms and reports her anxiety has been stable (currently a 2) with chest pain (like Im having a heart attack) when she is feeling anxious. The patient denies any hallucinations, paranoid thinking, self-injurious behaviors (history or current) , aggressive / violent behavior and homicidal ideations. The patient admits to drinking 1-2 drinks 1-2 times per week and denies drug use (has medical marijuana card)." They are currently prescribed psychiatric medications of Trintellix 10mg daily (has been on this for >1 year, not sure if it helps), Fluvoxamine (finds this very helpful, has been for a few years and helps with PTSD) and Vryalar (1.5mg every other day for anxiety). Recently missed about four doses of Fluvoxamine due to running out of their prescription. Psychiatric ROS notable for no current nor history of symptoms of mandi, psychosis, OCD. History of restrictive eating disorder but not in the last few weeks. No history of self-harm. Physical Exam Vital Signs (Past 24 Hours) Last Vital Signs Temp 36.8 C 02/07/23 06:29 Pulse 82 02/07/23 06:30 Resp 16 02/07/23 06:29 BP 95/63 L 02/07/23 06:30 Pulse Ox 100 02/04/23 21:21 O2 Del Method Room Air 02/04/23 21:21 See admission H&P and DOD summary. Principal Diagnosis Major Depressive Disorder with anxious distress Psychiatric Data See daily stay summary. In short, patient was engaged with the social/therapeutic milieu of the unit, safety was maintained and the patient was cooperative with care. Medication changes included increasing the Luvox to 300mg HS for depression and anxiety and PTSD and starting clonidine 0.1mg HS for night-terrors/PTSD/anxiety and stopped Trintellix and Vraylar they tolerated this well. A support session was held and safety plan was completed prior to discharge. They actively and insightfully participated in safety planning and in discussions about ways to seek support and recognizing warning signs and utilizing coping skills. Reviewed mobile apps that could be used for additional ways to have their safety plan and contacts easily available should thoughts of SI re-emerge in the future. Reviewed importance of seeking emergency care should SI intensify, worsen or should they feel unsafe in the future which they agree to do. On the day of discharge they stated their mood was "hopeful" and remained future-oriented including spending time with their girlfriend, getting food, and going to an [employer] event tomorrow and engaging in aftercare appointments for psychiatry and therapy. Day of Discharge Assessment Today the patient voices readiness for discharge. They note improvement in mood and anxiety. They deny thoughts of harm to self or others. Thoughts are organized and they are clinically improved from admission. There is no evidence of psychosis. They improved in the hospital with support and medication adjustments. They agree to take medications as prescribed and keep follow-up appointments. At the time of the discharge they are deemed to be stable and appropriate for outpatient level of care. They are not deemed to be at imminent risk of harm to self or others. They are aware of emergency and crisis services. Knows to call 911 or go to nearest emergency care center if in a crisis which cannot be handled as an outpatient. Transition of Care Transition Of Care Record: was reviewed with the patient Advance Directives Advance Directives Information Provided: No Advance Directives: No Mental Health Advance Directive: No Advance Directives on File: No Living Will: No Power of Quality Assurance Nurse: No Advance Directives Reason:: Declines as Mental Health Visit. Suicide Risk Level Suicide Risk Level Comments: Acute risk is low given improvement in mood and denial of SI, lack of access to lethal means, improvement in sleep and hopefulness. Chronic risk is low to moderate given some non-modifiable risk factors: psychiatric co-morbid diagnoses, and family history of suicide attempts but also with protective factors including: employed, good social support, sense of responsibility to family and social supports, outpatient care in place, positive coping skills, positive problem solving, capacity to establish therapeutic alliance, willingness to engage with treatment and capacity for self-observation. Counseled on ways to reduce acute and chronic risk including engaging with outpatient providers, using safety plan if needed, utilizing supports, taking medication, and using coping skills. Modifiable risk factors of SI, sleep terrors and depression were addressed during hospitalization through development of new coping skills, support meeting, safety planning, and medication adjustments. Risk Factors Assessment Male: No : Yes Do You Have Access To A Gun?: No Health Problems: No Mental Health Diagnoses: Yes Substance Use Disorders: No Previous Attempt: No Family History of Suicide: Yes (attempts) Previous Psychiatric Hospitalization: No Hopelessness: No Protective Factors Assessment Employed: Yes ([employer]) Stable Relationships: Yes Good Rapport with Provider: Yes Discharge Data Lab Results 02/04/23 02/04/23 02/04/23 16:07 16:23 16:23 WBC RBC Hgb Hct MCV MCH MCHC RDW Std Deviation RDW [place] Plt Count MPV Immature Gran % (Auto) Neut % (Auto) Lymph % (Auto) [place] % (Auto) Eos % (Auto) Baso % (Auto) Neut # (Auto) Lymph # (Auto) [place] # (Auto) Eos # (Auto) Baso # (Auto) Immature Gran # (Auto) Sodium Potassium Chloride Carbon Dioxide Anion Gap BUN Creatinine Est Cr Clr Drug Dosing Est GFR ( Amer) Est GFR (Non-Af Amer) BUN/Creatinine Ratio Glucose Calcium Total Bilirubin AST ALT Alkaline Phosphatase Total Protein Albumin Globulin Albumin/Globulin Ratio TSH HCG, Qual Urine Color Yellow Urine Appearance Cloudy A Urine pH 7.5 Ur Specific [place] 1.022 Urine Protein Negative Urine Glucose (UA) Negative Urine Ketones 1+ H Urine Blood Negative Urine Nitrite Negative Urine Bilirubin Negative Urine Urobilinogen Negative Ur Leukocyte Esterase Trace H Urine WBC (Auto) 10-30 H Urine RBC (Auto) 0-4 U Hyaline Cast (Auto) 5-10 H U Epithel Cells (Auto) >30 H Urine Bacteria (Auto) 2+ H Salicylates Urine Opiates Screen Neg Ur Methadone, Qual Neg Acetaminophen Urine Barbiturates Neg Ur Phencyclidine (PCP) Neg U Amphetamin/Meth Scrn Neg MDMA (Ecstasy) Screen Neg U Benzodiazepines Scrn Neg Ur Cocaine Metabolite Neg U Marijuana (THC) Screen Pos H U Marijuana THC Carboxy Drug Screen Comment Ethyl Alcohol mg/dL SARS-CoV-2, RNA, NAAT NEGATIVE 02/04/23 02/04/23 02/04/23 16:23 16:55 16:55 WBC 8.38 RBC 4.26 Hgb 14.4 Hct 39.9 MCV 93.7 MCH 33.8 MCHC 36.1 H RDW Std Deviation 41.1 RDW [place] 11.9 Plt Count 234 MPV 8.4 L Immature Gran % (Auto) 0.2 Neut % (Auto) 79.3 Lymph % (Auto) 14.4 [place] % (Auto) 5.4 Eos % (Auto) 0.5 Baso % (Auto) 0.2 Neut # (Auto) 6.64 H Lymph # (Auto) 1.21 [place] # (Auto) 0.45 Eos # (Auto) 0.04 Baso # (Auto) 0.02 Immature Gran # (Auto) 0.02 Sodium 138 Potassium 3.7 Chloride 106 Carbon Dioxide 27 Anion Gap 5 BUN 14 Creatinine 0.51 L Est Cr Clr Drug Dosing 121.1 Est GFR ( Amer) > 150.0 Est GFR (Non-Af Amer) 134.6 BUN/Creatinine Ratio 27.5 H Glucose 104 H Calcium 9.3 Total Bilirubin 0.5 AST 13 ALT 8 Alkaline Phosphatase 43 Total Protein 7.3 Albumin 4.5 Globulin 2.8 Albumin/Globulin Ratio 1.6 TSH HCG, Qual Urine Color Urine Appearance Urine pH Ur Specific [place] Urine Protein Urine Glucose (UA) Urine Ketones Urine Blood Urine Nitrite Urine Bilirubin Urine Urobilinogen Ur Leukocyte Esterase Urine WBC (Auto) Urine RBC (Auto) U Hyaline Cast (Auto) U Epithel Cells (Auto) Urine Bacteria (Auto) Salicylates Urine Opiates Screen Ur Methadone, Qual Acetaminophen Urine Barbiturates Ur Phencyclidine (PCP) U Amphetamin/Meth Scrn MDMA (Ecstasy) Screen U Benzodiazepines Scrn Ur Cocaine Metabolite U Marijuana (THC) Screen U Marijuana THC Carboxy 95 H Drug Screen Comment SEE NOTE Ethyl Alcohol mg/dL SARS-CoV-2, RNA, NAAT 02/04/23 02/04/23 02/04/23 16:55 16:55 16:55 WBC RBC Hgb Hct MCV MCH MCHC RDW Std Deviation RDW [place] Plt Count MPV Immature Gran % (Auto) Neut % (Auto) Lymph % (Auto) [place] % (Auto) Eos % (Auto) Baso % (Auto) Neut # (Auto) Lymph # (Auto) [place] # (Auto) Eos # (Auto) Baso # (Auto) Immature Gran # (Auto) Sodium Potassium Chloride Carbon Dioxide Anion Gap BUN Creatinine Est Cr Clr Drug Dosing Est GFR ( Amer) Est GFR (Non-Af Amer) BUN/Creatinine Ratio Glucose Calcium Total Bilirubin AST ALT Alkaline Phosphatase Total Protein Albumin Globulin Albumin/Globulin Ratio TSH 0.731 HCG, Qual Urine Color Urine Appearance Urine pH Ur Specific [place] Urine Protein Urine Glucose (UA) Urine Ketones Urine Blood Urine Nitrite Urine Bilirubin Urine Urobilinogen Ur Leukocyte Esterase Urine WBC (Auto) Urine RBC (Auto) U Hyaline Cast (Auto) U Epithel Cells (Auto) Urine Bacteria (Auto) Salicylates < 3.0 L Urine Opiates Screen Ur Methadone, Qual Acetaminophen < 3 L Urine Barbiturates Ur Phencyclidine (PCP) U Amphetamin/Meth Scrn MDMA (Ecstasy) Screen U Benzodiazepines Scrn Ur Cocaine Metabolite U Marijuana (THC) Screen U Marijuana THC Carboxy Drug Screen Comment Ethyl Alcohol mg/dL < 10.0 SARS-CoV-2, RNA, NAAT 02/04/23 16:55 WBC RBC Hgb Hct MCV MCH MCHC RDW Std Deviation RDW [place] Plt Count MPV Immature Gran % (Auto) Neut % (Auto) Lymph % (Auto) [place] % (Auto) Eos % (Auto) Baso % (Auto) Neut # (Auto) Lymph # (Auto) [place] # (Auto) Eos # (Auto) Baso # (Auto) Immature Gran # (Auto) Sodium Potassium Chloride Carbon Dioxide Anion Gap BUN Creatinine Est Cr Clr Drug Dosing Est GFR ( Amer) Est GFR (Non-Af Amer) BUN/Creatinine Ratio Glucose Calcium Total Bilirubin AST ALT Alkaline Phosphatase Total Protein Albumin Globulin Albumin/Globulin Ratio TSH HCG, Qual Negative Urine Color Urine Appearance Urine pH Ur Specific [place] Urine Protein Urine Glucose (UA) Urine Ketones Urine Blood Urine Nitrite Urine Bilirubin Urine Urobilinogen Ur Leukocyte Esterase Urine WBC (Auto) Urine RBC (Auto) U Hyaline Cast (Auto) U Epithel Cells (Auto) Urine Bacteria (Auto) Salicylates Urine Opiates Screen Ur Methadone, Qual Acetaminophen Urine Barbiturates Ur Phencyclidine (PCP) U Amphetamin/Meth Scrn MDMA (Ecstasy) Screen U Benzodiazepines Scrn Ur Cocaine Metabolite U Marijuana (THC) Screen U Marijuana THC Carboxy Drug Screen Comment Ethyl Alcohol mg/dL SARS-CoV-2, RNA, NAAT Hospital Course (1) Suicidal ideations: (2) Recurrent severe major depressive disorder with anxiety: (3) Post traumatic stress disorder (PTSD): (4) Generalized anxiety disorder with panic attacks: Plan 02/06/2023: Continue current medications and tx plan. 02/05/2023: The patient was admitted to the [facility] ([facility] mental health unit) on q15 min checks (behavioral with suicide precautions) for safety. The patient will participate in group, recreational, and milieu therapies and will be offered additional individual and family sessions as clinically appropriate. -Increase Luvox to 300mg HS -Start clonidine 0.1mg HS -Discontinue Trintellix and Vraylar Mental Health & Subst Abuse Tx Psychiatrist Name of Psychiatrist: Katya Khan- Amanda Dela Cruz Psychiatrist's Date Of Appointment With Psychiatric Provider: 02/18/2023 Time of Appointment with Psychiatrist: 11:20 AM Psychiatric Appointment Comment: [address] [place] [address] Therapist Name of Therapist: [facility]- Selina Krause Therapist's Date of Therapist Appointment: 02/19/23 Time of Therapist Appointment: 2:00 PM Therapy Appointment Comment: continue telehealth protocol Post Discharge Appointments Primary Care Physician Name Of Family Doctor/PCP: [facility]- Dr. Mendoza Primary Care Time of Appointment with PCP: please follow up as needed Provider Appointment Comment: [address], [place], [place] Contact Information Discharge Discharge Address: [place] [address] Discharge Plan Discharge Items Patient Disposition: Home - Self-Care Reason For Visit: SUICIDAL IDEATION Discharge Diagnosis: Major Depressive Disorder with anxious distress Activity: Resume your previous activity Non-emergency contact: Primary Care Provider, Psychiatrist and Therapist Call non-emergency contact if: you have any medication questions and your symptoms worsen Follow-up/Referrals: Viktor Mendoza MD [Primary Care Provider] - Diet: Regular Addtl Attending Provider Instructions: Optional mobile apps we discussed: -Suicide safety plan -Virtual Hope Box -Panic Administrative Services Specialist SPECIAL CARE INSTRUCTIONS: 1. Follow through with your scheduled aftercare appointments. If unable to keep an appointment, please call to reschedule. 2. Take your medication only as prescribed. Medication should not be changed or stopped without the approval of your doctor. In the event of worsening symptoms or concerns about side effects, contact your doctor immediately. 3. Utilize new healthy coping skills, anger management skills, and stress management skills learned during your hospitalization. Journal feelings and process them with a support person. Identify stressors or situations that may result in relapse, deterioration or inappropriate behaviors and develop a plan to deal with those issues. 4. If your coping skills are ineffective and you are in crisis, contact your outpatient providers for direction. If unable to reach your providers, please call the [facility] CRISIS LINE AT , go to the [facility] walk-in center at [address], [address], [place], or go to the closest Emergency Room. 5. Avoid alcohol and un-prescribed drugs. 6. You have been provided with the Mental Health Advance Directives Pamphlet for your review. 7. Your condition is stable for discharge to outpatient level of care, but recovery is an ongoing process. Ifthoughts to harm yourself or others return, follow the safety plan developed during your stay. Planning for a safe return home includes securing weapons. Our treatment team recommends weaponsbe removed from the home until your outpatient provider reassesses your progress. In rare cases where the items themselvescannot be removed, guns and ammunitionshould be secured separatelyand keys stored by a reliable personoutside of the home. If you were admitted on an involuntary commitment, the police or other legal authorities may be involved in this process. AFTERCARE APPOINTMENTS: * Please call your insurance company prior to your scheduled appointment to confirm your aftercare providers are covered. Take your insurance information to your appointments. WHO TO CALL AND WHEN: Medical Emergencies: For questions or emergencies related to your hospital stay, please contact the Inpatient Behavioral Health Unit at [phone]. A bobbin trucker is on-call 12/05 for the Behavioral Health Unit for emergencies At any time you feel your situation is an emergency, you may also call 911 immediately. Pending Studies at Discharge: No Stand-Alone Forms: [facility] Medications and DC Order Prescriptions: New clonidine HCl 0.1 mg Tablet 0.1 mg PO HS 30 Days Qty: 30 0RF fluvoxamine 150 mg capsule,extended release 24hr 300 mg PO HS 30 Days Qty: 60 0RF Discontinued fluvoxamine 100 mg capsule,extended release 24hr 100 mg PO DAILY Rx Instructions: TOTAL DOSE 250 MG--TAKES WITH 150 MG CAP. fluvoxamine 150 mg capsule,extended release 24hr 150 mg PO DAILY Rx Instructions: TOTAL DOSE 250 MG--TAKES WITH 100 MG CAP. Vraylar 1.5 mg capsule See Rx Instructions .ROUTE .COMPLEX Rx Instructions: 1.5 mg orally every other day Trintellix 10 mg tablet 10 mg PO DAILY Discharge Orders: Discharge Order (Routine); Ordered 02/07/23 Ordered By: Martina Cuellar Admission Data Admit Date/Time: 02/04/23 20:16 Attending Provider: Martina Cuellar Admit Provider: Martina Cuellar Primary Care Provider: Viktor Mendoza Other Interventions: Discharge Summary Assessment (RN) Last Done: 02/07/23 11:25 PSY Interdisciplinary Discharge Planning Last Done: 02/07/23 11:26 Coding Level of Care Code 03933 D/C day mgmt > 30 min Diagnoses Suicidal ideations R45.851 Recurrent severe major depressive disorder with anxiety F33.2; F41.9 Post traumatic stress disorder (PTSD) F43.10 Generalized anxiety disorder with panic attacks F41.1; F41.0 Time Spent (min) 38
== END 2023-02-07 11:43 | disposition home or self-care (01) | DRG 885 ==
LOC: ED 15:21 → 3S 20:16